=== PATIENT | female | born 1995 | race African-American/Black ===

== ENCOUNTER 2016-12-01 14:48 | Emergency (ER) | payer OTHER ==
--- NOTE | ~2016-12-01 | US85 ---
[facility] A Service of [facility] RADIOLOGY TEXT RESULTS PATIENT: RENA BYNUM LOCATION: SED : [birth year] UNIT #: [id number] AGE: [address]: AGUSTIN OLSON SEX: F ORDER DR: [id number] [address] [address] [id number] E MR#: [id number] Acc #: [id number] NAME: RENA BYNUM : 1995 SEX: F STUDY DATE/TIME: 12/01/2016 17:30 UNIT: SED ROOM: STUDY DESCRIPTION: LE Veins Unilat or Ltd Stdy Attending Physician: Agustin Olson Ordering Physician: Physician Non-Staff Primary Care Physician: Primary Care Physician No MEDICAL IMAGING REPORT This report is preliminary unless electronic signature is present. EXAM Lower extremity ultrasound for DVT on the right, 12/01/2016 INDICATION Knee pain for 2 weeks. No history of DVT. TECHNIQUE Hinds-scale, color Doppler and spectral analysis of the right lower extremity was performed. We have no comparison studies. FINDINGS The examination demonstrates no evidence of DVT in the right lower extremity. The venous structures demonstrate phasicity and compressibility. IMPRESSION No DVT in the right lower extremity. Dictated by... Balibr Layne M.D. THIS IS AN ELECTRONICALLY VERIFIED REPORT Balbir Layne M.D. at 12/02/2016 11:04 PM GABBI/arlet TD: 12/02/2016 03:52 JOB #: [id number] MEDICAL IMAGING REPORT [facility] A Service [facility] RADIOLOGY TEXT RESULTS PATIENT: RENA BYNUM LOCATION: SED : [birth year] UNIT #: [id number] AGE: [address]: AGUSTIN OLSON SEX: F ORDER DR: Page 1 of 1
--- NOTE | ~2016-12-01 | CR173 ---
[facility] A Service of [facility] RADIOLOGY TEXT RESULTS PATIENT: RENA BYNUM LOCATION: SED : 93 UNIT #: [id number] AGE: [address]: AGUSTIN OLSON SEX: F ORDER DR: [id number] [address] [address] [id number] E MR#: [id number] Acc #: [id number] NAME: RENA BYNUM : 1995 SEX: F STUDY DATE/TIME: 12/01/2016 15:31 UNIT: SED ROOM: STUDY DESCRIPTION: CR Knee 3 Views Rt Ordering Physician: [facility] MEDICAL IMAGING REPORT This report is preliminary unless electronic signature is present. EXAM Right knee HISTORY Right knee pain for the past 2 weeks. TECHNIQUE 3 views of the knee of the right knee were obtained. FINDINGS No bony abnormalities are seen. There is a small joint effusion. There is no evidence of fracture, osteochondral fragment or erosion. No radiodense foreign bodies are seen. IMPRESSION Small joint effusion. Otherwise, negative. Dictated by... Ko Singleton M.D. THIS IS AN ELECTRONICALLY VERIFIED REPORT Ko Singleton M.D. at 12/02/2016 7:07 AM RLF/madison TD: 12/01/2016 22:34 JOB #: [id number] MEDICAL IMAGING REPORT Page 1 of 1
[~2016-12-01 14:48] MED LIST: BACTRIM DS TABL1 TA1 PO; BENADRYL PO; CLEOCIN PO; CLONIDINE; DICLOFENAC PO; FAMOTIDINE PO; FLONASE 0.05% N16 G1; HYDROCHLOROTH12.5 MG PO; IBUPROFEN800 MG PO; IMODIUM2 MG PO; LIDOCAINE VISCOU1 ML PO; MOTRIN400 MG PO; NORCO 5/325 TAB1 TAB PO; PHENERGAN25 MG PO; PREDNISONE PO; PRILOSEC PO; TOPROL XL; VOLTAREN75 MG PO
== END 2016-12-01 18:46 | disposition home or self-care (01) ==
LOC: SED 14:48
DX: M25.561 Pain in right knee (principal); R03.0 Elevated blood-pressure reading, without diagnosis of hypertension; J45.909 Unspecified asthma, uncomplicated; F17.210 Nicotine dependence, cigarettes, uncomplicated; Z88.8 Allergy status to other drugs, medicaments and biological substances; Z79.899 Other long term (current) drug therapy
CPT/HCPCS: 29530; 36415; 73562; 85379; 93971; 99284